=== PATIENT | female | born 1945 | race Two or more races ===

== ENCOUNTER 2020-08-18 17:28 | Inpatient (IN) | payer OTHER ==
[~2020-08-18] VITALS: Ht 160 cm; Wt 108.5 kg
[2020-08-18 19:17] LABS: Basophils # (auto) 0 10 ^3/uL (0-0.2); Lymphocytes # (auto) 0.7 10 ^3/uL (0.4-5.4); Monocytes # (auto) 0.8 10 ^3/uL (0-1.3)
[2020-08-18 19:19] LABS: Basophils % (auto) 0.2 % (0.0-2.0); Eosinophils # (auto) 0.3 10 ^3/uL (0-0.8); Eosinophils % (auto) 3.7 % (0.0-7.0); Hematocrit 33.4 % (36.0-46.0); Hemoglobin 10.2 g/dL (12.2-16.2); Lymphocytes % (auto) 10.3 % (10.0-50.0); Mean Corpuscular Hemoglobin 25.6 pg (28.0-32.0); Mean Corpuscular Hgb Conc. 30.5 g/dL (32.0-36.0); Mean Corpuscular Volume 83.8 fL (80.0-100.0); Monocytes % (auto) 11.9 % (0.0-12.0); Neutrophils # (auto) 5.1 10 ^3/uL (1.6-8.6); Neutrophils % (auto) 73.9 % (37.0-80.0); Platelet Count (auto) 213 10^3/uL (140-450); Red Blood Cells 3.99 10^6/uL (4.0-5.20); White Blood Cell 6.8 10^3/uL (4.4-10.8)
[2020-08-18 20:10] LABS: Albumin 3.1 g/dL (3.4-5.0); Anion Gap 6 (5-15); Blood Urea Nitrogen 25 mg/dL (7-18); Calcium 7.9 mg/dL (8.5-10.1); Carbon Dioxide 28 mmol/L (21-32); Chloride 107 mmol/L (98-107); Glucose 136 mg/dL (74-106); Potassium 3.4 mmol/L (3.5-5.1); Sodium 141 mmol/L (136-145)
[2020-08-18 20:15] LABS: Alanine Aminotransferase 10 U/L (13-56); Alkaline Phosphatase 102 U/L (45-117); Aspartate Aminotransferase 6 U/L (15-37); BUN/Creatinine Ratio 16.4; Bilirubin, Total 0.4 mg/dL (0.2-1.0); GFR African American 43 mL/min; GFR Non-African American 36 mL/min; Total Protein 7.4 g/dL (6.4-8.2)
[2020-08-18] MEDS ORDERED: cloNIDine HCL 0.1 MG TAB PO ONE (22:30)
[2020-08-18] MEDS ORDERED: ONDANSETRON HCL 4 MG/2 ML VIAL IV ONE (23:45)
[2020-08-19] MEDS ORDERED: FUROSEMIDE 40 MG/4 ML VIAL IV ONE
[2020-08-19 00:54] LABS: INR 1.04 (0.9-1.15); Partial Thromboplastin Time 25.5 sec (23.0-31.2)
[2020-08-19] MEDS ORDERED: ACETAMINOPHEN 325 MG TAB PO ONE (01:00)
[2020-08-19] MEDS ORDERED: ONDANSETRON HCL 4 MG/2 ML VIAL IV PRN (02:45)
[2020-08-19] MEDS ORDERED: NITROGLYCERIN 0.4 MG SL TAB SL PRN (02:45)
[2020-08-19] MEDS ORDERED: cloNIDine HCL 0.1 MG TAB PO PRN (02:45)
[2020-08-19] MEDS ORDERED: MORPHINE SULF INJ 2 MG/ML SYRINGE 1ML IV PRN (02:45)
[2020-08-19] MEDS ORDERED: TEMAZEPAM 15 MG CAP PO PRN (02:45)
[2020-08-19 06:00] VITALS: BP 160/55
[2020-08-19 06:14] VITALS: BP 160/55
[2020-08-19] MEDS: FUROSEMIDE 20 MG/2 ML VIAL IV SCH ×2 (06:23→17:28)
[2020-08-19] MEDS ORDERED: POTASSIUM CHL 20 Meq TABLET PO ONE (07:45)
[2020-08-19 09:00] VITALS: BP 133/66
[2020-08-19] MEDS ORDERED: amLODIPine BESYLATE 5 MG TAB PO SCH (10:00)
[2020-08-19 12:48] VITALS: BP 133/65
[2020-08-19] MEDS ORDERED: POTA10TA51 PO (12:50)
[2020-08-19] MEDS ORDERED: FER325T PO (12:50)
[2020-08-19] MEDS ORDERED: TRAM50TA2 PO (12:50)
[2020-08-19] MEDS ORDERED: ISOS60TA24 PO (12:54)
[2020-08-19] MEDS ORDERED: LEV100T PO (12:54)
[2020-08-19] MEDS ORDERED: HYDR50TA15 PO (12:56)
[2020-08-19] MEDS ORDERED: CLOP75TA28 PO (12:56)
[2020-08-19] MEDS ORDERED: CLOPIDOGREL BISULFATE 75 MG TAB PO ONE (13:00)
[2020-08-19 16:13] LABS: Urine Bacteria FEW /hpf (None Seen); Urine Blood 3+ /uL (Negative); Urine Specific Gravity 1.016 (1.001-1.035); Urine WBC 6 /hpf (0 - 5)
[2020-08-19 17:00] VITALS: BP 133/64
[2020-08-19 22:00] VITALS: BP 145/58
[2020-08-19] MEDS: POTASSIUM CHL 10 Meq TABLET PO SCH (22:03)
[2020-08-20 05:00] VITALS: BP 139/71
[2020-08-20] MEDS: ACETAMINOPHEN 325 MG TAB PO PRN ×2 (05:45→06:29)
[2020-08-20] MEDS: FUROSEMIDE 20 MG/2 ML VIAL IV SCH (05:45)
[2020-08-20 06:43] LABS: Basophils # (auto) 0 10 ^3/uL (0-0.2); Basophils % (auto) 0.1 % (0.0-2.0); Eosinophils # (auto) 0.2 10 ^3/uL (0-0.8); Monocytes # (auto) 1.1 10 ^3/uL (0-1.3); Neutrophils # (auto) 5.2 10 ^3/uL (1.6-8.6)
[2020-08-20 06:44] LABS: Calcium 8.6 mg/dL (8.5-10.1); Potassium 3.9 mmol/L (3.5-5.1)
[2020-08-20 06:47] LABS: Eosinophils % (auto) 3.1 % (0.0-7.0); Hematocrit 31.7 % (36.0-46.0); Lymphocytes # (auto) 0.9 10 ^3/uL (0.4-5.4); Mean Corpuscular Hemoglobin 26.5 pg (28.0-32.0); Mean Corpuscular Hgb Conc. 31.4 g/dL (32.0-36.0); Mean Corpuscular Volume 84.5 fL (80.0-100.0); Monocytes % (auto) 14.8 % (0.0-12.0); Platelet Count (auto) 191 10^3/uL (140-450); Red Blood Cells 3.75 10^6/uL (4.0-5.20); White Blood Cell 7.5 10^3/uL (4.4-10.8)
[2020-08-20 06:53] LABS: BUN/Creatinine Ratio 16.8
[2020-08-20] MEDS ORDERED: LEVOTHYROXINE SODIUM 100 MCG TAB PO SCH (07:00)
[2020-08-20 07:16] LABS: Red Cell Distribution Width 20.3 % (11.8-14.3)
[2020-08-20 09:00] VITALS: BP 160/71
[2020-08-20] MEDS ORDERED: CLOPIDOGREL BISULFATE 75 MG TAB PO SCH (10:00)
[2020-08-20] MEDS ORDERED: amLODIPine BESYLATE 5 MG TAB PO SCH (10:00)
[2020-08-20] MEDS ORDERED: ISOSORBIDE MONONITRATE ER 60 MG TAB PO SCH (10:00)
[2020-08-20] MEDS: POTASSIUM CHL 10 Meq TABLET PO SCH (10:07)
[2020-08-20 13:00] VITALS: BP 155/72
== END 2020-08-20 16:30 | disposition home or self-care (01) | DRG 291 ==
LOC: ER 17:28 → TELE 17:29 → TELE-WESTW 08-19 05:35
PROVIDERS: ADMIT Nurse Practitioner; ATTEND Internal Medicine
DX: I13.0 Hypertensive heart and chronic kidney disease with heart failure and stage 1 through stage 4 chronic kidney disease, or unspecified chronic kidney disease (principal); I50.43 Acute on chronic combined systolic (congestive) and diastolic (congestive) heart failure; E44.0 Moderate protein-calorie malnutrition; Z68.41 Body mass index [BMI] 40.0-44.9, adult; J98.11 Atelectasis; I16.0 Hypertensive urgency; N18.30 Chronic kidney disease, stage 3 unspecified; E66.01 Morbid (severe) obesity due to excess calories; E03.9 Hypothyroidism, unspecified; D63.8 Anemia in other chronic diseases classified elsewhere; E11.22 Type 2 diabetes mellitus with diabetic chronic kidney disease; E87.6 Hypokalemia; J44.9 Chronic obstructive pulmonary disease, unspecified; Z79.899 Other long term (current) drug therapy; Z80.0 Family history of malignant neoplasm of digestive organs; Z86.73 Personal history of transient ischemic attack (TIA), and cerebral infarction without residual deficits
CPT/HCPCS: 36415; 70450; 71045; 80048; 80053; 81001; 83036; 83880; 84443; 84484; 85025; 85610; 85730; 93306; 93976; G0378; J2405

== ENCOUNTER 2020-11-15 15:20 | Inpatient (IN) | payer OTHER ==
[~2020-11-15] VITALS: Ht 160 cm; Wt 122.0 kg
[~2020-11-15 15:20] MED LIST: CLOP75TA28 PO; FER325T PO; HYDR50TA15 PO; ISOS60TA24 PO; LEV100T PO; POTA10TA51 PO; TRAM50TA2 PO
[2020-11-15 16:55] LABS: Basophils # (auto) 0 10 ^3/uL (0-0.2); Eosinophils # (auto) 0.2 10 ^3/uL (0-0.8); Eosinophils % (auto) 2.4 % (0.0-7.0); Hematocrit 33.4 % (36.0-46.0); Hemoglobin 10.4 g/dL (12.2-16.2); Lymphocytes # (auto) 0.5 10 ^3/uL (0.4-5.4); Mean Corpuscular Volume 83.1 fL (80.0-100.0); Monocytes # (auto) 0.7 10 ^3/uL (0-1.3); Neutrophils # (auto) 6.2 10 ^3/uL (1.6-8.6); Red Blood Cells 4.01 10^6/uL (4.0-5.20); White Blood Cell 7.6 10^3/uL (4.4-10.8)
[2020-11-15 16:57] LABS: Basophils % (auto) 0.3 % (0.0-2.0); Lymphocytes % (auto) 6.7 % (10.0-50.0); Mean Corpuscular Hgb Conc. 31.3 g/dL (32.0-36.0); Monocytes % (auto) 9.8 % (0.0-12.0); Neutrophils % (auto) 80.8 % (37.0-80.0); Platelet Count (auto) 210 10^3/uL (140-450); Red Cell Distribution Width 20.5 % (11.8-14.3)
[2020-11-15 17:23] LABS: Albumin 3.1 g/dL (3.4-5.0); Calcium 8.1 mg/dL (8.5-10.1); Potassium 3.4 mmol/L (3.5-5.1)
[2020-11-15 17:26] LABS: Bilirubin, Total 0.5 mg/dL (0.2-1.0); Total Protein 7.8 g/dL (6.4-8.2)
[2020-11-15] MEDS ORDERED: FUROSEMIDE 40 MG/4 ML VIAL IV ONE (17:45)
[2020-11-15] MEDS ORDERED: POTASSIUM CHL 20 Meq TABLET PO ONE ×2 (18:00)
[2020-11-15] MEDS ORDERED: ACETAMINOPHEN 500 MG TAB PO PRN (21:15)
[2020-11-15] MEDS ORDERED: ALBUTEROL SULF HFA 90MCG INH 200DOSE IN PRN (21:15)
[2020-11-15] MEDS ORDERED: NITROGLYCERIN 0.4 MG SL TAB SL PRN (21:15)
[2020-11-15] MEDS ORDERED: LORazepam 0.5 MG TAB PO PRN (21:15)
[2020-11-15] MEDS ORDERED: DOCUSATE CALCIUM 240 MG CAP PO PRN (21:15)
[2020-11-15] MEDS ORDERED: MORPHINE SULF INJ 2 MG/ML SYRINGE 1ML IV PRN ×2 (21:15)
[2020-11-15] MEDS ORDERED: hydrALAZINE HCL 20 MG/ML VL IV PRN (21:15)
[2020-11-15] MEDS ORDERED: VANCOMYCIN PER PHARMACY 0 MG IV SCH (21:15)
[2020-11-15] MEDS ORDERED: VANCOMYCIN 1GM/250ML 250 ML IV ONE (22:00)
[2020-11-15] MEDS: BUDESONIDE (INHALATION) 180 MCG IH IN SCH (22:00)
[2020-11-15 22:30] LABS: Potassium 3.4 mmol/L (3.5-5.1)
[2020-11-16] MEDS: PIPERACILLIN-TAZOB 3.375GM 100 ML IV SCH ×4 (00:43→18:34)
[2020-11-16] MEDS: FERROUS SULFATE 325 MG TAB PO SCH ×3 (00:44→18:45)
[2020-11-16] MEDS ORDERED: amLODIPine BESYLATE 5 MG TAB PO ONE (02:30)
[2020-11-16] MEDS ORDERED: hydrALAZINE HCL 25 MG TAB PO ONE (02:30)
[2020-11-16 04:13] VITALS: BP 191/94
[2020-11-16 04:37] VITALS: BP 206/80
[2020-11-16] MEDS: hydrALAZINE HCL 20 MG/ML VL IV PRN ×2 (04:53→20:58)
[2020-11-16] MEDS: hydrALAZINE HCL 25 MG TAB PO SCH ×3 (06:30→22:52)
[2020-11-16] MEDS: LEVOTHYROXINE SODIUM 100 MCG TAB PO SCH (06:31)
[2020-11-16] MEDS: ISOSORBIDE MONONITRATE ER 60 MG TAB PO SCH (07:35)
[2020-11-16 08:26] LABS: Basophils # (auto) 0 10 ^3/uL (0-0.2); Basophils % (auto) 0.1 % (0.0-2.0); Lymphocytes # (auto) 0.5 10 ^3/uL (0.4-5.4); White Blood Cell 8.9 10^3/uL (4.4-10.8)
[2020-11-16 08:29] LABS: Eosinophils # (auto) 0 10 ^3/uL (0-0.8); Eosinophils % (auto) 0.5 % (0.0-7.0); Hematocrit 34.7 % (36.0-46.0); Lymphocytes % (auto) 5.3 % (10.0-50.0); Mean Corpuscular Hemoglobin 26.3 pg (28.0-32.0); Mean Corpuscular Hgb Conc. 31.7 g/dL (32.0-36.0); Monocytes # (auto) 0.8 10 ^3/uL (0-1.3); Monocytes % (auto) 8.4 % (0.0-12.0); Neutrophils # (auto) 7.6 10 ^3/uL (1.6-8.6); Neutrophils % (auto) 85.7 % (37.0-80.0); Platelet Count (auto) 201 10^3/uL (140-450); Red Blood Cells 4.18 10^6/uL (4.0-5.20)
[2020-11-16 08:34] LABS: Red Cell Distribution Width 20.2 % (11.8-14.3)
[2020-11-16 08:50] LABS: Potassium 3.5 mmol/L (3.5-5.1)
[2020-11-16 09:14] LABS: BUN/Creatinine Ratio 15.8; Bilirubin, Total 0.8 mg/dL (0.2-1.0); CRP High Sensitivity 1.27 mg/dL (< 0.3); Calcium 8.6 mg/dL (8.5-10.1); Magnesium 1.8 mg/dL (1.6-2.6); Total Protein 7.8 g/dL (6.4-8.2)
[2020-11-16 10:23] LABS: Urine Bacteria NONE SEEN /hpf (None Seen); Urine Blood Negative /uL (Negative); Urine Specific Gravity 1.012 (1.001-1.035); Urine WBC 1 /hpf (0 - 5)
[2020-11-16 10:40] LABS: Alcohol, Urine < 3.0 mg/dL (0-10); Amphetamine Screen, Urine NEGATIVE (NEGATIVE); Barbiturate Scree,Urine NEGATIVE (NEGATIVE); Benzodiazephine Screen, Urine NEGATIVE (NEGATIVE); Cannabinoid Screen, Urine NEGATIVE (NEGATIVE); Cocaine Screen, Urine NEGATIVE (NEGATIVE); Opiate Scree,Urine NEGATIVE (NEGATIVE); Phencyclidine Screen, Urine NEGATIVE (NEGATIVE)
[2020-11-16] MEDS: PANTOPRAZOLE 40 MG TAB PO SCH (11:14)
[2020-11-16] MEDS: ZINC SULFATE 220mg CAP or TAB PO SCH (11:14)
[2020-11-16] MEDS: ENOXAPARIN SOD 100 MG/1 ML SYRINGE SC SCH (11:15)
[2020-11-16] MEDS: ASCORBIC ACID 1,000 MG TAB PO SCH (11:15)
[2020-11-16] MEDS: CHOLECALCIFEROL (VITD3) 2,000 UNIT CAP PO SCH (11:15)
[2020-11-16] MEDS: BUDESONIDE (INHALATION) 180 MCG IH IN SCH (12:10)
[2020-11-16] MEDS ORDERED: hydrALAZINE HCL 25 MG TAB PO SCH (14:00)
[2020-11-16] MEDS ORDERED: FUROSEMIDE 20 MG/2 ML VIAL IV ONE (16:00)
[2020-11-16] MEDS ORDERED: CARVEDILOL 3.125 MG TAB PO ONE (16:00)
[2020-11-16] MEDS ORDERED: POTASSIUM EFFERVESENT TAB 25 MEQ PO ONE (16:00)
[2020-11-16] MEDS ORDERED: POTASSIUM EFFERVESENT TAB 25 MEQ ONE (17:06)
[2020-11-16] MEDS: ONDANSETRON HCL 4 MG/2 ML VIAL IV PRN (21:23)
[2020-11-16] MEDS: TEMAZEPAM 15 MG CAP PO PRN (21:24)
[2020-11-16] MEDS: CARVEDILOL 3.125 MG TAB PO SCH (22:53)
[2020-11-17] MEDS: PIPERACILLIN-TAZOB 3.375GM 100 ML IV SCH ×5 (01:03→23:47)
[2020-11-17] MEDS: ONDANSETRON HCL 4 MG/2 ML VIAL IV PRN ×2 (01:04→10:21)
[2020-11-17] MEDS: hydrALAZINE HCL 20 MG/ML VL IV PRN (05:08)
[2020-11-17 06:49] LABS: BUN/Creatinine Ratio 12.6; Calcium 8.4 mg/dL (8.5-10.1); Potassium 3.5 mmol/L (3.5-5.1)
[2020-11-17] MEDS: LEVOTHYROXINE SODIUM 100 MCG TAB PO SCH (06:58)
[2020-11-17] MEDS: hydrALAZINE HCL 25 MG TAB PO SCH ×3 (06:58→22:00)
[2020-11-17] MEDS: amLODIPine BESYLATE 5 MG TAB PO SCH (08:25)
[2020-11-17] MEDS: ISOSORBIDE MONONITRATE ER 60 MG TAB PO SCH (08:25)
[2020-11-17] MEDS: CHOLECALCIFEROL (VITD3) 2,000 UNIT CAP PO SCH (08:25)
[2020-11-17] MEDS: FERROUS SULFATE 325 MG TAB PO SCH ×2 (08:25→18:00)
[2020-11-17] MEDS: CARVEDILOL 3.125 MG TAB PO SCH ×2 (08:25→22:00)
[2020-11-17] MEDS: PANTOPRAZOLE 40 MG TAB PO SCH (08:25)
[2020-11-17] MEDS: ENOXAPARIN SOD 100 MG/1 ML SYRINGE SC SCH (08:25)
[2020-11-17] MEDS: ZINC SULFATE 220mg CAP or TAB PO SCH (08:26)
[2020-11-17] MEDS: ASCORBIC ACID 1,000 MG TAB PO SCH (08:26)
[2020-11-17] MEDS ORDERED: ALBUTEROL SULF 2.5 MG/0.5ML(0.5%) NEB SOLN NEB PRN (10:45)
[2020-11-17] MEDS ORDERED: IPRATROPIUM BROM 0.5 MG/2.5ML INH SOL NEB PRN (10:45)
[2020-11-17] MEDS: methylPREDNISolone SOD SUCC 40 MG/ML VL IV SCH ×2 (11:14→22:00)
[2020-11-17] MEDS: ALBUTEROL SULF 2.5 MG/0.5ML(0.5%) NEB SOLN NEB SCH ×2 (13:27→19:15)
[2020-11-17] MEDS: IPRATROPIUM BROM 0.5 MG/2.5ML INH SOL NEB SCH ×2 (13:27→19:15)
[2020-11-18] MEDS: TEMAZEPAM 15 MG CAP PO PRN (02:06)
[2020-11-18] MEDS: PIPERACILLIN-TAZOB 3.375GM 100 ML IV SCH ×2 (05:33→12:37)
[2020-11-18] MEDS: hydrALAZINE HCL 25 MG TAB PO SCH (05:33)
[2020-11-18] MEDS: ALBUTEROL SULF 2.5 MG/0.5ML(0.5%) NEB SOLN NEB SCH ×2 (06:00→12:12)
[2020-11-18] MEDS: IPRATROPIUM BROM 0.5 MG/2.5ML INH SOL NEB SCH ×2 (06:00→12:12)
[2020-11-18] MEDS: LEVOTHYROXINE SODIUM 100 MCG TAB PO SCH (06:48)
[2020-11-18] MEDS ORDERED: ENOXAPARIN SOD 40 MG/0.4 ML SYRINGE SC SCH (10:00)
[2020-11-18] MEDS: ISOSORBIDE MONONITRATE ER 60 MG TAB PO SCH (10:05)
[2020-11-18] MEDS: FERROUS SULFATE 325 MG TAB PO SCH (10:05)
[2020-11-18] MEDS: CARVEDILOL 3.125 MG TAB PO SCH (10:06)
[2020-11-18] MEDS: ZINC SULFATE 220mg CAP or TAB PO SCH (10:06)
[2020-11-18] MEDS: amLODIPine BESYLATE 5 MG TAB PO SCH (10:06)
[2020-11-18] MEDS: PANTOPRAZOLE 40 MG TAB PO SCH (10:06)
[2020-11-18] MEDS: methylPREDNISolone SOD SUCC 40 MG/ML VL IV SCH (10:06)
[2020-11-18 12:00] VITALS: BP 162/76
[2020-11-18] MEDS ORDERED: PRED20TA2 PO (12:47)
[2020-11-18] MEDS ORDERED: AMOX500T86 PO (12:47)
[2020-11-18] MEDS ORDERED: CAR3125T PO (12:49)
[2020-11-18 14:44] VITALS: BP 152/65
[2020-11-18] MEDS ORDERED: CLOPIDOGREL BISULFATE 75 MG TAB PO SCH (22:00)
== END 2020-11-18 16:15 | disposition home or self-care (01) | DRG 291 ==
LOC: ER 15:20 → EDBD 15:20 → TELE 21:22 → TELE-CENTR 11-18 09:28
PROVIDERS: ADMIT Family Medicine; ATTEND Internal Medicine Pulmonary Disease
DX: I13.0 Hypertensive heart and chronic kidney disease with heart failure and stage 1 through stage 4 chronic kidney disease, or unspecified chronic kidney disease (principal); J18.9 Pneumonia, unspecified organism; J96.21 Acute and chronic respiratory failure with hypoxia; I50.23 Acute on chronic systolic (congestive) heart failure; J44.1 Chronic obstructive pulmonary disease with (acute) exacerbation; I16.9 Hypertensive crisis, unspecified; J44.0 Chronic obstructive pulmonary disease with (acute) lower respiratory infection; D64.9 Anemia, unspecified; Z20.822 Contact with and (suspected) exposure to COVID-19; E87.6 Hypokalemia; E11.65 Type 2 diabetes mellitus with hyperglycemia; E03.9 Hypothyroidism, unspecified; E11.22 Type 2 diabetes mellitus with diabetic chronic kidney disease; I25.10 Atherosclerotic heart disease of native coronary artery without angina pectoris; Z79.84 Long term (current) use of oral hypoglycemic drugs; Z90.49 Acquired absence of other specified parts of digestive tract; Z95.5 Presence of coronary angioplasty implant and graft; N18.32 Chronic kidney disease, stage 3b
CPT/HCPCS: 36415; 51702; 71045; 71250; 80048; 80051; 80053; 80202; 80307; 81001; 82728; 83036; 83605; 83615; 83735; 83880; 84443; 84484; 85025; 85379; 86141; 87040; 87426; 93005; 94640; G0378; J2405; J2543

== ENCOUNTER 2020-11-21 08:37 | Inpatient (IN) | payer OTHER ==
[~2020-11-21] VITALS: Ht 157.5 cm; Wt 110.5 kg
[~2020-11-21 08:37] MED LIST changes: +AMOX500T86 PO; +CAR3125T PO; +PRED20TA2 PO
[2020-11-21 09:14] LABS: Hematocrit 32.8 % (36.0-46.0)
[2020-11-21] MEDS ORDERED: DexAMETHasone SOD PHOS 10MG/1ML VIAL INJ IV ONE (09:15)
[2020-11-21] MEDS ORDERED: AZITHROMYCIN 500MG/ 250ML 250 ML IV ONE (09:15)
[2020-11-21] MEDS ORDERED: FAMOTIDINE (10MG/ML) 2ML VL IV ONE (09:15)
[2020-11-21 09:16] LABS: Hemoglobin 10.3 g/dL (12.2-16.2); Mean Corpuscular Hemoglobin 26.3 pg (28.0-32.0); Mean Corpuscular Hgb Conc. 31.3 g/dL (32.0-36.0); Mean Corpuscular Volume 84.1 fL (80.0-100.0); Platelet Count (auto) 170 10^3/uL (140-450); White Blood Cell 10.9 10^3/uL (4.4-10.8)
[2020-11-21 09:20] LABS: Red Cell Distribution Width 20.3 % (11.8-14.3)
[2020-11-21 09:21] LABS: Basophils % (manual) 0 (0.0-2.0); Blast Cells 0; Eosinophils % (manual) 0 (0-7); Myelocytes % 0; Promyelocytes % 0; Reactive Lymphocytes 0
[2020-11-21 09:36] LABS: Albumin 2.9 g/dL (3.4-5.0); Calcium 7.8 mg/dL (8.5-10.1); Magnesium 2.4 mg/dL (1.6-2.6); Potassium 4.9 mmol/L (3.5-5.1)
[2020-11-21 09:42] LABS: BUN/Creatinine Ratio 21.1; Bilirubin, Total 0.2 mg/dL (0.2-1.0); Total Protein 7.5 g/dL (6.4-8.2)
[2020-11-21 09:43] LABS: CRP High Sensitivity 0.29 mg/dL (< 0.3)
[2020-11-21 09:52] LABS: Band Neutrophils % (manual) 1; Lymphocytes % (manual) 2 (10.0-50.0); Metamyelocytes % 2; Monocytes % (manual) 4 (0-12)
[2020-11-21] MEDS ORDERED: NITROGLYCERIN 0.4 MG SL TAB SL PRN (13:30)
[2020-11-21] MEDS ORDERED: MORPHINE SULF INJ 2 MG/ML SYRINGE 1ML IV PRN ×2 (13:30→14:15)
[2020-11-21] MEDS ORDERED: ACETAMINOPHEN 500 MG TAB PO PRN (14:15)
[2020-11-21] MEDS ORDERED: ALBUTEROL SULF 2.5 MG/0.5ML(0.5%) NEB SOLN NEB PRN (14:15)
[2020-11-21] MEDS ORDERED: ONDANSETRON HCL 4 MG/2 ML VIAL IV PRN (14:15)
[2020-11-21] MEDS ORDERED: DEXTROSE (50%) 50ML SYRG IV PRN (14:15)
[2020-11-21] MEDS ORDERED: traMADol HCL 50 MG TAB PO PRN ×2 (14:15)
[2020-11-21] MEDS ORDERED: LACTULOSE 20Gm/30ML SOLN PO PRN (14:15)
[2020-11-21] MEDS ORDERED: TEMAZEPAM 15 MG CAP PO PRN (14:15)
[2020-11-21] MEDS ORDERED: diphenhdrAMINE HCL 50 MG/1 ML VL IV PRN (15:15)
[2020-11-21] MEDS ORDERED: REMDESIVIR PER PHARMACY 0 ML IV SCH (15:15)
[2020-11-21] MEDS: ACCU-CHEK COMFORT CURVE STRIP VI SCH ×2 (16:11→20:00)
[2020-11-21] MEDS: methylPREDNISolone SOD SUCC 40 MG/ML VL IV SCH (17:24)
[2020-11-21] MEDS: InsuLIN REG 1unit/0.01ml Soln (100units/ml) SC SCH ×2 (17:25→20:00)
[2020-11-21] MEDS: FUROSEMIDE 40 MG/4 ML VIAL IV SCH (17:27)
[2020-11-21 17:37] LABS: Creatinine, Urine 91 mg/dL (30.0-125.0); Sodium Urine 8 mmol/L (40-220)
[2020-11-21 17:57] LABS: Urine Amorphous Crystal FEW /hpf (None Seen); Urine Bacteria FEW /hpf (None Seen); Urine Blood Negative /uL (Negative); Urine Specific Gravity 1.016 (1.001-1.035); Urine WBC 4 /hpf (0 - 5)
[2020-11-21] MEDS ORDERED: IPRATROPIUM BROM 0.5 MG/2.5ML INH SOL NEB SCH (18:00)
[2020-11-21] MEDS ORDERED: ALBUTEROL SULF 2.5 MG/0.5ML(0.5%) NEB SOLN NEB SCH (18:00)
[2020-11-21] MEDS: BUDESONIDE (INHALATION) 180 MCG IH IN SCH (18:59)
[2020-11-21] MEDS: ALBUTEROL SULF HFA 90MCG INH 200DOSE IN PRN (21:10)
[2020-11-21] MEDS: INSULIN LANTUS (GLARGINE) 1 /0.01ml (100units/ml) SC SCH (22:00)
[2020-11-21] MEDS: FAMOTIDINE (10MG/ML) 2ML VL IV SCH (22:00)
[2020-11-21] MEDS: FERROUS SULFATE 325 MG TAB PO SCH (22:00)
[2020-11-21] MEDS: CLOPIDOGREL BISULFATE 75 MG TAB PO SCH (22:00)
[2020-11-21] MEDS: CARVEDILOL 3.125 MG TAB PO SCH (22:00)
[2020-11-21] MEDS: FAMOTIDINE 20 MG TAB PO SCH (22:00)
[2020-11-21] MEDS ORDERED: ATORVASTATIN 20 MG TAB PO SCH (22:00)
[2020-11-21] MEDS: hydrALAZINE HCL 25 MG TAB PO SCH (22:00)
[2020-11-21] MEDS: ENOXAPARIN SOD 40 MG/0.4 ML SYRINGE SC SCH (22:00)
[2020-11-22 00:30] VITALS: BP 166/77
[2020-11-22] MEDS: ACCU-CHEK COMFORT CURVE STRIP VI SCH ×6 (00:33→20:00)
[2020-11-22] MEDS: InsuLIN REG 1unit/0.01ml Soln (100units/ml) SC SCH ×6 (00:37→20:00)
[2020-11-22 00:48] VITALS: BP 166/77
[2020-11-22] MEDS: methylPREDNISolone SOD SUCC 40 MG/ML VL IV SCH ×2 (02:24→12:47)
[2020-11-22] MEDS: hydrALAZINE HCL 25 MG TAB PO SCH ×3 (05:37→22:00)
[2020-11-22] MEDS: FUROSEMIDE 40 MG/4 ML VIAL IV SCH ×2 (05:41→18:49)
[2020-11-22 06:07] LABS: Hemoglobin 10.7 g/dL (12.2-16.2)
[2020-11-22 06:10] LABS: Hematocrit 33.9 % (36.0-46.0); Mean Corpuscular Hemoglobin 26.3 pg (28.0-32.0); Mean Corpuscular Hgb Conc. 31.6 g/dL (32.0-36.0); Mean Corpuscular Volume 83.3 fL (80.0-100.0); Platelet Count (auto) 170 10^3/uL (140-450); Red Blood Cells 4.07 10^6/uL (4.0-5.20); Red Cell Distribution Width 19.8 % (11.8-14.3); White Blood Cell 7.4 10^3/uL (4.4-10.8)
[2020-11-22 06:16] LABS: Band Neutrophils % (manual) 0; Basophils % (manual) 0 (0.0-2.0); Blast Cells 0; Eosinophils % (manual) 0 (0-7); Metamyelocytes % 0; Myelocytes % 0; Promyelocytes % 0; Reactive Lymphocytes 0
[2020-11-22 06:26] LABS: Albumin 3.1 g/dL (3.4-5.0); Calcium 8.4 mg/dL (8.5-10.1)
[2020-11-22 06:33] LABS: BUN/Creatinine Ratio 26.2; Bilirubin, Total 0.4 mg/dL (0.2-1.0); Total Protein 7.5 g/dL (6.4-8.2)
[2020-11-22] MEDS: INSULIN LANTUS (GLARGINE) 1 /0.01ml (100units/ml) SC SCH ×2 (06:41→22:00)
[2020-11-22 07:27] LABS: Lymphocytes % (manual) 2 (10.0-50.0); Monocytes % (manual) 1 (0-12)
[2020-11-22 08:00] VITALS: BP 152/77
[2020-11-22] MEDS: CHOLECALCIFEROL (VITD3) 2,000 UNIT CAP PO SCH (09:21)
[2020-11-22] MEDS: ISOSORBIDE MONONITRATE ER 60 MG TAB PO SCH (09:21)
[2020-11-22] MEDS: NITROGLYCERIN 0.2MG/HR TOPICAL PATCH TD SCH (09:22)
[2020-11-22] MEDS: ZINC SULFATE 220mg CAP or TAB PO SCH (09:22)
[2020-11-22] MEDS: ASCORBIC ACID 1,000 MG TAB PO SCH (09:22)
[2020-11-22] MEDS: FERROUS SULFATE 325 MG TAB PO SCH (09:23)
[2020-11-22] MEDS: LEVOTHYROXINE SODIUM 100 MCG TAB PO SCH (09:23)
[2020-11-22] MEDS: FAMOTIDINE 20 MG TAB PO SCH (09:23)
[2020-11-22] MEDS: CARVEDILOL 3.125 MG TAB PO SCH ×2 (09:24→22:00)
[2020-11-22] MEDS: FAMOTIDINE (10MG/ML) 2ML VL IV SCH (09:24)
[2020-11-22] MEDS: AZITHROMYCIN 500MG/ 250ML 250 ML IV SCH (09:24)
[2020-11-22] MEDS: ENOXAPARIN SOD 40 MG/0.4 ML SYRINGE SC SCH (09:25)
[2020-11-22] MEDS: BUDESONIDE (INHALATION) 180 MCG IH IN SCH ×2 (09:33→20:27)
[2020-11-22] MEDS ORDERED: IVERMECTIN 3 MG TAB PO ONE (10:00)
[2020-11-22] MEDS ORDERED: ENALAPRIL MALEATE 2.5 MG TAB PO SCH (10:00)
[2020-11-22] MEDS ORDERED: cefTRIAXone 1GM/50ML D5W 50 ML IV ONE (12:00)
[2020-11-22 16:00] VITALS: BP 154/70
[2020-11-22] MEDS: CLOPIDOGREL BISULFATE 75 MG TAB PO SCH (22:00)
[2020-11-23] VITALS (7 sets, daily range): BP systolic 114–168; BP diastolic 55–83
[2020-11-23] MEDS: methylPREDNISolone SOD SUCC 40 MG/ML VL IV SCH ×2 (03:00→14:50)
[2020-11-23] MEDS: ACCU-CHEK COMFORT CURVE STRIP VI SCH ×5 (04:00→17:46)
[2020-11-23] MEDS: InsuLIN REG 1unit/0.01ml Soln (100units/ml) SC SCH ×5 (04:00→17:46)
[2020-11-23] MEDS: FUROSEMIDE 40 MG/4 ML VIAL IV SCH ×2 (06:00→17:45)
[2020-11-23] MEDS: hydrALAZINE HCL 25 MG TAB PO SCH ×3 (06:00→22:00)
[2020-11-23 06:42] LABS: Basophils # (auto) 0 10 ^3/uL (0-0.2); Eosinophils # (auto) 0 10 ^3/uL (0-0.8); Hematocrit 31.5 % (36.0-46.0); Lymphocytes # (auto) 0.3 10 ^3/uL (0.4-5.4); Neutrophils % (auto) 88.8 % (37.0-80.0)
[2020-11-23 06:44] LABS: Basophils % (auto) 0.1 % (0.0-2.0); Hemoglobin 9.8 g/dL (12.2-16.2); Lymphocytes % (auto) 2.5 % (10.0-50.0); Mean Corpuscular Hemoglobin 25.7 pg (28.0-32.0); Mean Corpuscular Hgb Conc. 31.1 g/dL (32.0-36.0); Mean Corpuscular Volume 82.6 fL (80.0-100.0); Monocytes % (auto) 8.6 % (0.0-12.0); Neutrophils # (auto) 10.7 10 ^3/uL (1.6-8.6); Platelet Count (auto) 177 10^3/uL (140-450); Red Blood Cells 3.82 10^6/uL (4.0-5.20)
[2020-11-23] MEDS: INSULIN LANTUS (GLARGINE) 1 /0.01ml (100units/ml) SC SCH ×2 (06:59→22:00)
[2020-11-23 07:01] LABS: Red Cell Distribution Width 20.4 % (11.8-14.3)
[2020-11-23] MEDS: ALBUTEROL SULF HFA 90MCG INH 200DOSE IN PRN ×2 (07:15→17:58)
[2020-11-23] MEDS: BUDESONIDE (INHALATION) 180 MCG IH IN SCH ×2 (07:15→17:58)
[2020-11-23 07:25] LABS: Calcium 8.2 mg/dL (8.5-10.1); Potassium 4.7 mmol/L (3.5-5.1)
[2020-11-23 07:27] LABS: BUN/Creatinine Ratio 28.4
[2020-11-23] MEDS: ISOSORBIDE MONONITRATE ER 60 MG TAB PO SCH (08:29)
[2020-11-23] MEDS: CARVEDILOL 3.125 MG TAB PO SCH ×2 (08:31→22:00)
[2020-11-23] MEDS: LEVOTHYROXINE SODIUM 100 MCG TAB PO SCH (08:32)
[2020-11-23] MEDS: FAMOTIDINE (10MG/ML) 2ML VL IV SCH (08:58)
[2020-11-23] MEDS: cefTRIAXone 1GM/50ML D5W 50 ML IV SCH (08:58)
[2020-11-23] MEDS: ASCORBIC ACID 1,000 MG TAB PO SCH (08:59)
[2020-11-23] MEDS: CHOLECALCIFEROL (VITD3) 2,000 UNIT CAP PO SCH (08:59)
[2020-11-23] MEDS: ENOXAPARIN SOD 40 MG/0.4 ML SYRINGE SC SCH (08:59)
[2020-11-23] MEDS: NITROGLYCERIN 0.2MG/HR TOPICAL PATCH TD SCH (09:00)
[2020-11-23] MEDS: ZINC SULFATE 220mg CAP or TAB PO SCH (09:00)
[2020-11-23] MEDS: AZITHROMYCIN 500MG/ 250ML 250 ML IV SCH (10:57)
[2020-11-23] MEDS ORDERED: DEXTROSE (50%) 50ML SYRG IV PRN (12:45)
[2020-11-23] MEDS: LABETALOL HCL 5 MG/ML 4ML SYRINGE IV PRN (18:43)
[2020-11-23] MEDS: CLOPIDOGREL BISULFATE 75 MG TAB PO SCH (22:00)
[2020-11-24] MEDS: methylPREDNISolone SOD SUCC 40 MG/ML VL IV SCH ×2 (02:30→14:25)
[2020-11-24] MEDS: InsuLIN REG 1unit/0.01ml Soln (100units/ml) SC SCH ×5 (06:30→21:04)
[2020-11-24] MEDS: FUROSEMIDE 40 MG/4 ML VIAL IV SCH ×4 (06:30→11:04)
[2020-11-24] MEDS: hydrALAZINE HCL 25 MG TAB PO SCH ×4 (06:30→21:57)
[2020-11-24] MEDS: ACCU-CHEK COMFORT CURVE STRIP VI SCH ×5 (06:30→21:16)
[2020-11-24 07:00] LABS: Potassium 4.7 mmol/L (3.5-5.1)
[2020-11-24] MEDS: INSULIN LANTUS (GLARGINE) 1 /0.01ml (100units/ml) SC SCH ×2 (07:00→21:05)
[2020-11-24 07:07] LABS: BUN/Creatinine Ratio 30.5; Calcium 8.4 mg/dL (8.5-10.1)
[2020-11-24 08:00] VITALS: BP 173/64
[2020-11-24] MEDS: LEVOTHYROXINE SODIUM 100 MCG TAB PO SCH (08:50)
[2020-11-24] MEDS: cefTRIAXone 1GM/50ML D5W 50 ML IV SCH (08:50)
[2020-11-24] MEDS: ISOSORBIDE MONONITRATE ER 60 MG TAB PO SCH (08:50)
[2020-11-24] MEDS: ZINC SULFATE 220mg CAP or TAB PO SCH (08:51)
[2020-11-24] MEDS: ASCORBIC ACID 1,000 MG TAB PO SCH (08:51)
[2020-11-24] MEDS: FAMOTIDINE (10MG/ML) 2ML VL IV SCH (08:51)
[2020-11-24] MEDS: CHOLECALCIFEROL (VITD3) 2,000 UNIT CAP PO SCH (08:52)
[2020-11-24] MEDS: CARVEDILOL 3.125 MG TAB PO SCH (08:52)
[2020-11-24] MEDS: ENOXAPARIN SOD 40 MG/0.4 ML SYRINGE SC SCH (08:53)
[2020-11-24] MEDS: BUDESONIDE (INHALATION) 180 MCG IH IN SCH ×2 (10:00→19:00)
[2020-11-24] MEDS: AZITHROMYCIN 500MG/ 250ML 250 ML IV SCH (13:49)
[2020-11-24 14:00] VITALS: BP 150/70
[2020-11-24] MEDS ORDERED: TEMAZEPAM 15 MG CAP PO PRN (14:15)
[2020-11-24] MEDS ORDERED: guaiFENesin-DM 100/10mg/5ml SYR PO PRN (14:15)
[2020-11-24 16:00] VITALS: BP 181/73
[2020-11-24] MEDS: LABETALOL HCL 5 MG/ML 4ML SYRINGE IV PRN ×2 (17:26→23:44)
[2020-11-24] MEDS ORDERED: CARVEDILOL 12.5 MG TAB PO ONE (19:00)
[2020-11-24] MEDS: ALBUTEROL SULF HFA 90MCG INH 200DOSE IN PRN (19:00)
[2020-11-24] MEDS: CLOPIDOGREL BISULFATE 75 MG TAB PO SCH (21:16)
[2020-11-25] MEDS: methylPREDNISolone SOD SUCC 40 MG/ML VL IV SCH ×2 (02:12→15:30)
[2020-11-25] MEDS: InsuLIN REG 1unit/0.01ml Soln (100units/ml) SC SCH ×2 (06:16→12:20)
[2020-11-25] MEDS: ACCU-CHEK COMFORT CURVE STRIP VI SCH ×2 (06:17→11:34)
[2020-11-25] MEDS: INSULIN LANTUS (GLARGINE) 1 /0.01ml (100units/ml) SC SCH (06:17)
[2020-11-25] MEDS: hydrALAZINE HCL 25 MG TAB PO SCH ×2 (06:26→15:30)
[2020-11-25] MEDS: BUDESONIDE (INHALATION) 180 MCG IH IN SCH (07:18)
[2020-11-25] MEDS: ASCORBIC ACID 1,000 MG TAB PO SCH (09:43)
[2020-11-25] MEDS: LEVOTHYROXINE SODIUM 100 MCG TAB PO SCH (09:44)
[2020-11-25] MEDS: cefTRIAXone 1GM/50ML D5W 50 ML IV SCH (09:45)
[2020-11-25] MEDS: FAMOTIDINE (10MG/ML) 2ML VL IV SCH (09:47)
[2020-11-25] MEDS: ISOSORBIDE MONONITRATE ER 60 MG TAB PO SCH (09:57)
[2020-11-25] MEDS: FUROSEMIDE 40 MG/4 ML VIAL IV SCH (09:57)
[2020-11-25] MEDS ORDERED: CARVEDILOL 3.125 MG TAB PO SCH (10:00)
[2020-11-25] MEDS: ZINC SULFATE 220mg CAP or TAB PO SCH (10:01)
[2020-11-25] MEDS: CHOLECALCIFEROL (VITD3) 2,000 UNIT CAP PO SCH (10:01)
[2020-11-25] MEDS: ENOXAPARIN SOD 40 MG/0.4 ML SYRINGE SC SCH (10:02)
[2020-11-25] MEDS: AZITHROMYCIN 500MG/ 250ML 250 ML IV SCH (11:00)
[2020-11-25 15:05] VITALS: BP 155/73
[2020-11-25 16:00] VITALS: BP 155/73
== END 2020-11-25 18:00 | disposition home or self-care (01) | DRG 177 ==
LOC: EDBD 08:37 → ER 08:37 → TELE 08:38 → TELE-WESTW 23:20
PROVIDERS: ADMIT Internal Medicine; ATTEND Internal Medicine
PROC: XW033E5 Introduction of Remdesivir Anti-infective into Peripheral Vein, Percutaneous Approach, New Technology Group 5 (ICD-10-PCS; principal; 2020-11-21)
PROC: XW13325 Transfusion of Convalescent Plasma (Nonautologous) into Peripheral Vein, Percutaneous Approach, New Technology Group 5 (ICD-10-PCS; 2020-11-23)
DX: U07.1 COVID-19 (principal); N17.0 Acute kidney failure with tubular necrosis; J96.20 Acute and chronic respiratory failure, unspecified whether with hypoxia or hypercapnia; I50.43 Acute on chronic combined systolic (congestive) and diastolic (congestive) heart failure; J12.82 Pneumonia due to coronavirus disease 2019; E44.0 Moderate protein-calorie malnutrition; J44.1 Chronic obstructive pulmonary disease with (acute) exacerbation; E87.1 Hypo-osmolality and hyponatremia; I13.0 Hypertensive heart and chronic kidney disease with heart failure and stage 1 through stage 4 chronic kidney disease, or unspecified chronic kidney disease; J44.0 Chronic obstructive pulmonary disease with (acute) lower respiratory infection; Z68.42 Body mass index [BMI] 45.0-49.9, adult; I27.20 Pulmonary hypertension, unspecified; E88.09 Other disorders of plasma-protein metabolism, not elsewhere classified; N18.9 Chronic kidney disease, unspecified; E11.22 Type 2 diabetes mellitus with diabetic chronic kidney disease; E66.01 Morbid (severe) obesity due to excess calories; E11.65 Type 2 diabetes mellitus with hyperglycemia; D63.8 Anemia in other chronic diseases classified elsewhere; E03.9 Hypothyroidism, unspecified; Z79.899 Other long term (current) drug therapy; Z80.0 Family history of malignant neoplasm of digestive organs; Z90.49 Acquired absence of other specified parts of digestive tract
CPT/HCPCS: 36415; 36430; 36600; 71045; 76775; 80048; 80053; 81001; 82550; 82570; 82728; 82805; 82962; 83615; 83735; 83880; 84300; 84484; 85007; 85025; 85027; 85379; 85652; 86141; 86850; 86900; 86901; 87081; 87426; 87804; 93005; 93306; 93970; 94640; 96365; 96375; 99291; G0378; J0696; J1100; J1815; J2405; J3490

== ENCOUNTER 2020-11-29 13:47 | Emergency (ER) | payer OTHER ==
[~2020-11-29] VITALS: Ht 165.1 cm; Wt 127.0 kg
[2020-11-29] MEDS ORDERED: EPINEPHrine HCL 1 MG/10 ML SYRG IV ONE (13:48)
[2020-11-29] MEDS ORDERED: SODIUM BICARBONATE 8.4 % INJ 50ML VIAL IV ONE (13:48)
[2020-11-29 13:49] VITALS: BP 0/0
[2020-12-02] MEDS ORDERED: HYDROcodone-ACET 5/325MG TAB PO ONE (16:00)
== END 2020-11-29 14:03 ==
LOC: ER 13:47 → EDBD 13:47 → ER 14:03
DX: U07.1 COVID-19 (principal); I46.9 Cardiac arrest, cause unspecified; I11.0 Hypertensive heart disease with heart failure; I50.9 Heart failure, unspecified; J44.9 Chronic obstructive pulmonary disease, unspecified; E11.9 Type 2 diabetes mellitus without complications
CPT/HCPCS: 92950; 99291; J0171